=== PATIENT | female | born 1945 ===

== ENCOUNTER → 2023-07-27 | Emergency (ER) | payer OTHER ==
--- OUTSIDE RECORDS SUMMARY | 2023-07-27 12:01 | XMS REPORT | Continuity of Care Document ---
Author Name Unknown Address [address] [facility] [address] [place] [address] [facility] Address [address] [address] [place] [address] Care Team Providers Care Drilling Superintendent Name Role Phone SHYANNE CULLEN Primary Care Physician Unavailab le RADIOLOGY Attending Clinician Unavailable Radiology Attending Clinician Unavailable LORETA Attending Clinician Unavailable SPENCER BOWEN JR Attending Clinician Harriett REBECA Solorio Attending Clinician Unava ilable SHYANNE CULLEN Admitting Clinician Unavailable LORETA Admitting Clinician Unavailable Payers Payer Name Policy Type Policy Number Effective Date Expirati on Date Source MEDICARE PART A \T\ [id number] 2011 00:00:00 [employer] [id number] 2021 00:00:00 [employer] [id number] 2012 00:00:00 Problems Condition Name Condition Details Condition Category Status Onset Date Resolution Date Last Treatment Date Treating Clinician Comments Source Post-op pain Post-op pain Disease Active 2017-08 00:00: 00 [facility] Pain Pain Disease Active 01-23 00:00: 00 [facility] Essential hypertensi on, benign Essential hypertensi on, benign Disease Active 12-12 00:00: 00 [facility] Allergies, Adverse Reactions, Alerts Allergy Name Allergy Type Status Severity Reaction(s) Onset Date Inactive Date Treating Clinician Comments Source NO KNOWN ALLERGIE S Drug Class Active [facility] Social History Social Habit Start Date Stop Date Quantity Comments Source Alcohol intake 2022-02-10 00:00:00 2022-02-10 00:00:00 Current non-drinker of alcohol (finding) [facility] Tobacco use and exposure 2018-01-21 00:00:00 2018-01-21 00:00:[address] [facility] Sex Ass[birth year] At 1945 00:00[birth year]00 1945 00:00:00 [facility] Smoking Status Start Date Stop Date Source Never smoker [facility] Medications Ordered Medication Name Filled Medication Name Start Date Stop Date Current Medication? Ordering Clinician Indication Dosage Frequency Signature (SIG) Comments Components Source losartan 100 mg tablet 05-01 09:18: 33 Yes 50mg Take 50 mg by mouth daily. [facility] hydroCHLORO thiazide 25 mg tablet 05-01 09:18: 33 Yes 25mg Take 25 mg by mouth daily. [facility] carvedilol 12.5 mg tablet 05-01 09:18: 33 Yes 6.25mg Take 6.25 mg by mouth 2 (two) times daily with meals. [facility] cholecalcif konstantin, vitamin D3, (VITAMIN D3) 4,000 unit Cap 05-01 09:18: 33 Yes Take by mouth. [facility] Potassium 99 mg Tab 05-01 09:18: 33 Yes 1{tbl} Take 1 tablet by mouth 2 (two) times daily. [facility] FLAXSEED ORAL 05-01 09:18: 33 Yes 1{tbl} Take 1 tablet by mouth daily. [facility] aspirin 81 mg chewable tablet 05-01 09:18: 33 Yes 81mg Take 81 mg by mouth daily. [facility] Procedures Procedure Date / Time Performed Performing Clinicia n Source CONSENT/REFUSAL FOR DIAGNOSIS AND TREATMENT 2022-02-10 14:13:40 Doctor Unassigned, [place] [facility] ASSIGNMENT OF BENEFITS 2022-02-10 14:13:12 Docto r Unassigned, [place] [facility] Encounters Start Date/Time End Date/Time Encounter Type Admission Type Attending Clinicians Care Facility Care Department Encounter ID Source 2022-02-10 09:13:52 2022-02-10 23:59:00 Outpatient R RADIOLOGY [facility] [id number] [facility] 2022-02-10 09:13:52 2022-02-10 23:59:00 Hospital Encounter Radiology [facility] [id number] [facility] 2021-06-29 11:17:00 2021-06-29 11:17:00 Outpatient AMBREEN[facility] [id number] [place] Program 2020-12-30 00:00:00 2020-12-30 00:00:[address] [facility] [id number] [facility] 2020-06-12 13:20:00 2020-06-12 13:20:00 Outpatient R SPENCER BOWEN [facility] [id number] [facility] 2018-06-17 12:30:00 2018-06-17 12:30:00 Outpatient R REBE[facility] [id number] [facility]
--- NOTE | 2023-07-27 12:35 | ER ---
Nurse's Notes [facility] Name: Marybeth Flores Age: 77 yrs Sex: Female : 1945 Arrival Date: 07/27/2023 Time: 11:59 Bed IW5 Private MD: Diagnosis: Other acute conjunctivitis;Unspecified acute conjunctivitis, bilateral Presentation: 07/27 12:15 Chief complaint: Bilateral eye redness, itching, and drainage x 1 week. Coronavirus hb screen: At this time, the client does not indicate any symptoms associated with coronavirus-19. Ebola Screen: No symptoms or risks identified at this time. Initial Sepsis Screen: Does the patient meet any 2 criteria? No. Patient's initial sepsis screen is negative. Does the patient have a suspected source of infection? No. Patient's initial sepsis screen is negative. Risk Assessment: Do you want to hurt yourself or someone else? Patient reports no desire to harm self or others. Onset of symptoms was July 20, 2023. 12:15 Method Of Arrival: Ambulatory hb 12:15 Acuity: RICHARD 4 hb Historical: - Allergies: 12:17 No Known Allergies; hb - PMHx: 12:17 Enlarged Heart; Endometrial Carcinoma; hb - PSHx: 12:17 Hysterectomy; section; Knee Replacement - Bilateral; hb - Immunization history:: Adult Immunizations up to date. - Social history:: Smoking status: Patient denies any tobacco usage or history of. Vital Signs: 12:15 BP 141 / 101; Pulse 66; Resp 18; Temp 98.2(O); Weight 136.08 kg; Height 5 ft. 7 in. ; hb Pain 2/10; 12:15 Body Mass Index 46.99 (136.08 kg, 170.18 cm) hb 12:15 Pain Scale: Adult hb ED Course: 12:06 Patient arrived in ED. hb 12:17 Triage completed. hb 12:19 Arm band placed on. hb 12:20 Waqar Chapman MD is Attending Physician. kdr 12:34 Bebo Gamez MD is Referral Physician. kdr Administered Medications: No medications were administered Outcome: 12:34 Discharge ordered by . kdr 12:42 Patient left the ED. hb Signatures: Waqar Chapman MD MD kdr Ansley Vann RN RN hb Corrections: (The following items were deleted from the chart) : PMHx: Hypertension; hb hb PMHx: Knee Replacement - Bilateral; hb hb PSHx: Hysterectomy; hb hb
--- NOTE | 2023-07-27 12:35 | EDPHYS ---
Physician Documentation [facility] Name: Marybeth Flores Age: 77 yrs Sex: Female : 1945 Arrival Date: 07/27/2023 Time: 11:59 Bed IW5 Private MD: ED Physician Waqar Chapman HPI: 07/27 12:29 This 77 yrs old Female presents to ER via Ambulatory with complaints of Eye Problem. kdr 12:29 The patient is experiencing matting or discharge, Itching and redness. Onset: The kdr symptoms/episode began/occurred gradually, 1 week(s) ago. Duration: the symptoms are continuous. Aggravated by nothing. Alleviated by Patient states she has had to put cold compresses on that in the morning when she first wakes she has to wash her eyes out because they are stuck shut. Associated signs and symptoms: Pertinent positives: None. Pertinent negatives: chills, dizziness, ear ache, fever, headache, runny nose. Historical: - Allergies: 12:17 No Known Allergies; hb - PMHx: 12:17 Enlarged Heart; Endometrial Carcinoma; hb - PSHx: 12:17 Hysterectomy; section; Knee Replacement - Bilateral; hb - Immunization history:: Adult Immunizations up to date. - Social history:: Smoking status: Patient denies any tobacco usage or history of. ROS: 12:32 Constitutional: Negative for fever, chills, and weight loss, kdr 12:32 Eyes: Positive for discharge, itching, matting, redness, Negative for foreign body sensation, icterus, injury or acute deformity, photophobia, sunken appearance, vision loss, visual disturbance, Exam: 12:32 Constitutional: This is a well developed, well nourished patient who is awake, alert, kdr and in no acute distress. 12:32 Eyes: Periorbital structures: erythema, that is mild, bilaterally, Pupils: no acute changes, Extraocular movements: no acute changes, Conjunctiva: normal, Corneas: are normal, Sclera: Injected bilaterally, Nystagmus: is not appreciated, Vital Signs: 12:15 BP 141 / 101; Pulse 66; Resp 18; Temp 98.2(O); Weight 136.08 kg; Height 5 ft. 7 in. ; hb Pain 2/10; 12:15 Body Mass Index 46.99 (136.08 kg, 170.18 cm) hb 12:15 Pain Scale: Adult hb MDM: 12:32 Data reviewed: vital signs, nurses notes. kdr 12:34 Patient medically screened. kdr Administered Medications: No medications were administered Disposition Summary: 07/27/23 12:34 Discharge Ordered Notes: Location: Home kdr Problem: new kdr Symptoms: are unchanged kdr Condition: Stable kdr Diagnosis - Other acute conjunctivitis kdr - Unspecified acute conjunctivitis, bilateral kdr Followup: kdr - With: Private Physician - When: 2 - 3 days - Reason: If symptoms return, Further diagnostic work-up, Recheck today's complaints, Continuance of care, Re-evaluation by your physician Followup: kdr - With: Bebo Gamez MD - When: 2 - 3 days - Reason: If symptoms return, Further diagnostic work-up, Recheck today's complaints, Continuance of care, Re-evaluation by your physician Discharge Instructions: - Discharge Summary Sheet kdr - Bacterial Conjunctivitis, Adult kdr - How to Use Eye Drops and Eye Ointments kdr Forms: - Medication Reconciliation Form kdr - Thank You Letter kdr - Antibiotic Education kdr - Patient Portal Instructions kdr - Leadership Thank You Letter kdr Prescriptions: - Gentamicin 0.3 % Ophthalmic drops - instill 2 drops OPHTHALMIC route every 4 hours Until symptoms have resolved for kdr 24 hours Dispense quantity sufficient for 7 days; 1 Unspecified; Refills: 0, Product Selection Permitted Signatures: Waqar Chapman MD MD kdr Ansley Vann RN RN hb Corrections: (The following items were deleted from the chart) 12:19 12:17 PMHx: Hypertension; hb hb 12:19 12:17 PMHx: Knee Replacement - Bilateral; hb hb 12:19 12:17 PSHx: Hysterectomy; hb hb
[2023-07-27 12:48] VITALS: BP 141/101; TEMP 98.2
== END ==
LOC: ER 11:59
DX: H10.33 Unspecified acute conjunctivitis, bilateral (principal)
CPT/HCPCS: 99281